=== PATIENT | male | born 1970 | race Caucasian/White ===

== ENCOUNTER 2016-02-14 22:14 | Emergency (ER) | payer BC, MEDICAID ==
[2016-02-14] MEDS ORDERED: LIDOCAINE 2% 20 ML ONE (22:46)
[2016-02-14] MEDS ORDERED: KETOROLAC 60 MG/2 ML VIAL IM ONE (23:52)
== END 2016-02-15 00:34 | disposition home or self-care (01) ==
LOC: FASTR 22:14
DX: M51.16 Intervertebral disc disorders with radiculopathy, lumbar region (principal)
CPT/HCPCS: 72100; 96372